=== PATIENT | male | born 1950 | race Caucasian/White ===

== ENCOUNTER 2017-07-19 13:51 | Emergency (ER) | payer OTHER, SELFPAY ==
[2017-07-19 13:52] VITALS: BP 177/94; PULSE 77; RESP 18; TEMP 36.6; O2SAT 97; BMI 29.6
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
--- NOTE | 2017-07-19 14:46 | NURSING ---
NO LW OR POA
[2017-07-19 14:47] LABS: Bacteria 0 SEEN /hpf (None Seen); Mucous, Urine 0 SEEN /hpf (<or=2+); Red Blood Cells-Urine 0 SEEN /hpf (0-5); White Blood Cells 0 SEEN /hpf (0-5)
[2017-07-19 14:52] LABS: Color, Urine Yellow (Yellow); Glucose, Dipstick Normal (Normal); Ketone-Dipstick Negative (Negative); Leukocyte Esterase-Dipstick Negative /ul (Negative); Nitrite-Dipstick Negative (Negative); Occult Blood-Urine Negative /ul (Negative); Protein-Dipstick Negative (Negative); Urine Bilirubin Dipstick Negative (Negative); Urine Clarity Sl. Cloudy (Clear); Urine Urobilinogen Normal (Normal)
[2017-07-19 15:00] LABS: Squamous Epithelial Cells - UA 0-5 SEEN /hpf (0-5)
--- NOTE | 2017-07-19 15:23 | CT_ITS ---
STUDY: CT ABDOMEN AND PELVIS WITHOUT CONTRAST REASON FOR EXAM: Male, 67 years old. Left lower quadrant abdominal pain RADIATION DOSAGE (If Supplied By Facility): CTDIvol = ( 14.24 ) mGy, DLP = ( 640.35 ) mGycm TECHNIQUE: Transaxial images were obtained from the dome of the diaphragm to the symphysis pubis without oral contrast, and without intravenous contrast. Sagittal and coronal images were reconstructed. Individualized dose optimization techniques were used for this CT. COMPARISON: 04/01/2017 FINDINGS: The visualized lung bases are unremarkable. The visualized portions of the heart are within normal limits. There is decreased attenuation of the liver consistent with steatosis. Normal gallbladder and extrahepatic biliary system. Normal spleen. Normal pancreas. Normal bilateral adrenal glands. Normal right kidney. Well-defined hypodensity within the lower pole of the left kidney, largest measuring 2.4 cm. Probable cysts. Normal visualized stomach. Normal small intestine. There are multiple colonic diverticula consistent with diverticulosis. The appendix is visualized and appears normal. Infrarenal abdominal aortic aneurysm is noted which is probably fusiform in nature measuring 3.7 cm AP by 3.6 cm wide. Extensive atherosclerotic calcifications of the abdominal aorta. Normal inferior vena cava. Normal retroperitoneum. Normal urinary bladder. There are prostatic calcifications. Normal abdominal wall. There are diffuse degenerative changes of the visualized lumbar spine. CT/Abdomen/Pelvis without Cont IMPRESSION: 1. No acute findings. 2. Infrarenal abdominal aortic aneurysm, stable from prior exam. 3. Stable left lower pole renal cysts. Electronically Signed: Brent Petersen DO at 16:12 EST Tel , Service support ,
--- NOTE | 2017-07-19 16:25 | NURSING ---
NO LW OR POA
== END 2017-07-19 17:11 | disposition home or self-care (01) ==
PROVIDERS: Emergency Provider Emergency Medicine; Family Provider Family Medicine; PCP Family Medicine
DX: R10.32 Left lower quadrant pain (principal); I71.4 Abdominal aortic aneurysm, without rupture; E78.00 Pure hypercholesterolemia, unspecified; K21.9 Gastro-esophageal reflux disease without esophagitis
CPT/HCPCS: 74176; 81001; 99282

== ENCOUNTER → 2017-11-05 16:09 | Outpatient (CLI) | payer OTHER, SELFPAY | PROVIDERS: Family Provider Family Medicine; PCP Family Medicine; Visit Provider Family Medicine | DX: N39.0 Urinary tract infection, site not specified (principal) | CPT/HCPCS: 87086 ==

== ENCOUNTER → 2018-04-06 09:31 | Outpatient (CLI) | payer MEDICARE, OTHER, SELFPAY ==
--- NOTE | 2018-04-06 09:34 | US_ITS ---
PROCEDURES: ULTRASOUND AORTA REASON FOR EXAM: Male, 68 years old. AAA TECHNIQUE: Ultrasound evaluation of the aorta was performed with real-time and static mcghee-scale imaging. COMPARISON: Ultrasound dated 04/06/2016. CT abdomen and pelvis dated 07/19/2017 FINDINGS: There is no elongation or tortuosity of the abdominal aorta. Aorta measures: Proximal 2 cm. Middle 2.4 cm. Distal 3.6 cm. Aorta measure transversely: Proximal 2.4 cm. Middle 2.3 cm. Distal 3.3 cm. Right iliac artery measures: 0.9 cm. Right iliac artery measure transversely: 1.2 cm. Left iliac artery measures: 0.9 cm. Left iliac artery measure transversely: 1.4 cm. There is a demonstrated saccular aneurysm.. Measuring 3.3 x 4.2 cm US/Aorta IMPRESSION: Saccular abdominal aortic aneurysm measuring 3.3 x 4.2 cm. Stable from [address] abdomen and pelvis dated 07/19/2017 Electronically Signed: Brent Petersen DO at 12:35 EDT Tel , Service support ,
== END ==
PROVIDERS: Family Provider Family Medicine; PCP Family Medicine; Referring Provider Family Medicine; Visit Provider Family Medicine
DX: I71.4 Abdominal aortic aneurysm, without rupture (principal)
CPT/HCPCS: 76775

== ENCOUNTER → 2019-03-29 08:54 | Outpatient (CLI) | payer MEDICARE, OTHER, SELFPAY ==
--- NOTE | 2019-03-29 08:56 | US_ITS ---
PROCEDURES: ULTRASOUND AORTA REASON FOR EXAM: Male, 69 years old. Patient has a history of abdominal aortic aneurysm. TECHNIQUE: Ultrasound evaluation of the aorta was performed with real-time and static mcghee-scale imaging. COMPARISON: Comparison is made with prior study April 06, 2018. FINDINGS: There is no elongation or tortuosity of the abdominal aorta. Aorta measures: Proximal obscured by bowel gas. Middle 1.9 cm. Distal 4.0 cm. Aorta measure transversely: Proximal obscured by bowel gas. Middle 1.9 cm. Distal 3.3 cm. Right iliac artery measures: 0.8 cm. Right iliac artery measure transversely: 1.1 cm. Left iliac artery measures: 0.8 cm. Left iliac artery measure transversely: 1.1 cm. There is a demonstrated saccular infrarenal abdominal aortic aneurysm.. This is essentially unchanged. US/Aorta IMPRESSION: Stable saccular infrarenal abdominal aortic aneurysm with a transverse dimension of 3.3 cm and 4.3 cm in length Electronically Signed: Rakan Puente, at 13:39 EDT , Service support ,
== END ==
PROVIDERS: Family Provider Family Medicine; PCP Family Medicine; Referring Provider Family Medicine; Visit Provider Family Medicine
DX: I71.4 Abdominal aortic aneurysm, without rupture (principal)
CPT/HCPCS: 76775

== ENCOUNTER → 2019-04-03 | Outpatient (CLI) | payer MEDICARE, OTHER, SELFPAY ==
[2019-04-03 14:18] LABS: Cholesterol 210 mg/dL (200); High Density Lipoprotein 46 mg/dL; Triglycerides 128 mg/dL; Very Low Density Lipoprotein 26 mg/dL (5-40)
== END | disposition home or self-care (01) ==
LOC: MFPLAB 11:44
PROVIDERS: Family Provider Family Medicine; PCP Family Medicine; Visit Provider Family Medicine
DX: Z00.00 Encounter for general adult medical examination without abnormal findings (principal); Z12.5 Encounter for screening for malignant neoplasm of prostate
CPT/HCPCS: 36415; 80061; 84153; G0103

== ENCOUNTER → 2020-01-02 11:53 | Outpatient (CLI) | payer MEDICARE, OTHER, SELFPAY ==
[2020-01-02 15:50] LABS: Absolute Neutrophil Count 2.7 X10^3/uL (2.0-7.7); Basophil# 0.05 X10^3/uL; Eosinophil# 0.11 X10^3/uL; Eosinophils% 2.3 % (0-5); Hematocrit 47.4 % (40-54); Hemoglobin 15.2 g/dL (13.0-16.5); Lymphocyte % 31.1 % (19-41); Mean Corp Hgb Conc 32.1 g/dL (32-36); Mean Corpuscular Hgb 29.3 pg (27.0-32.0); Mean Corpuscular Volume 91.3 fL (80-94); Mean Platelet Vol. 9.8 fl (6.2-12.0); Monocyte# 0.46 X10^3/uL; Monocyte% 9.5 % (0-10); NRBC Flagged by Analyzer 0 % (0-5); Neutrophil # 2.68 X10^3/uL (2.7-7.7); Neutrophil % 55.7 % (47-70); Platelet Count 262 K/mm3 (150-450); RBC Distribution Width CV 13.2 % (11.6-14.6); RBC Distribution Width SD 43.8 fl (35.1-43.9); Red Blood Count 5.19 M/mm3 (4.6-6.2); White Blood Count 4.8 K/mm3 (4.4-11.0)
[2020-01-02 15:51] LABS: Erythrocyte Sedimentation Rate 14 mm/hr (0-20)
[2020-01-02 16:27] LABS: Rheumatoid Factor < 10.0 IU/mL (<15)
[2020-01-04 15:20] LABS: ANTINUCLEAR ANTIBODIES DIRECT Negative (Negative)
== END ==
PROVIDERS: PCP Family Medicine; Referring Provider Family Medicine; Visit Provider Family Medicine
DX: M19.90 Unspecified osteoarthritis, unspecified site (principal)
CPT/HCPCS: 36415; 85025; 85652; 86038; 86431

== ENCOUNTER → 2020-04-10 09:53 | Outpatient (CLI) | payer MEDICARE, OTHER, SELFPAY ==
[2020-04-10 12:40] LABS: Absolute Lymphocyte Count 1.98 X10^3/uL (0.83-4.51); Absolute Neutrophil Count 3.1 X10^3/uL (2.0-7.7); Basophil# 0.05 X10^3/uL; Basophil% 0.9 % (0-1); Eosinophil# 0.19 X10^3/uL; Eosinophils% 3.3 % (0-5); Hematocrit 44.5 % (40-54); Hemoglobin 14.9 g/dL (13.0-16.5); Lymphocyte # 1.98 X10^3/ul (4.0); Lymphocyte % 33.9 % (19-41); Mean Corp Hgb Conc 33.5 g/dL (32-36); Mean Corpuscular Hgb 29.1 pg (27.0-32.0); Mean Corpuscular Volume 86.9 fL (80-94); Mean Platelet Vol. 9.7 fl (6.2-12.0); Monocyte% 8.6 % (0-10); NRBC Flagged by Analyzer 0 % (0-5); Neutrophil # 3.11 X10^3/uL (2.7-7.7); Neutrophil % 53.1 % (47-70); Platelet Count 349 K/mm3 (150-450); RBC Distribution Width CV 13.2 % (11.6-14.6); RBC Distribution Width SD 41.9 fl (35.1-43.9); Red Blood Count 5.12 M/mm3 (4.6-6.2); White Blood Count 5.8 K/mm3 (4.4-11.0)
[2020-04-10 13:10] LABS: Cholesterol 173 mg/dL (200); High Density Lipoprotein 45 mg/dL; PSA,Total - Annual Screen 2.68 ng/mL (0.00-4.00); Triglycerides 74 mg/dL; Very Low Density Lipoprotein 15 mg/dL (5-40)
== END ==
PROVIDERS: PCP Family Medicine; Referring Provider Family Medicine; Visit Provider Family Medicine
DX: Z00.00 Encounter for general adult medical examination without abnormal findings (principal); Z12.5 Encounter for screening for malignant neoplasm of prostate; E78.5 Hyperlipidemia, unspecified; D59.10 Autoimmune hemolytic anemia, unspecified
CPT/HCPCS: 36415; 80061; 84153; 85025; G0103

== ENCOUNTER → 2020-05-24 07:48 | Outpatient (CLI) | payer MEDICARE, OTHER, SELFPAY ==
--- NOTE | 2020-05-24 07:50 | AAVD_ITS ---
Reason For Study: AAA Aorta Measurements Aorta Doppler Measurements Proximal aorta measures2.44 x 2.34cm. in cross- Peak systolic flow velocities within the proximal sectional axis. aorta measure 81.7 cm/sec. Proximal aorta measures2.26cm. in longitudinal Peak systolic flow velocities within the mid aorta axis. measure 72.9 cm/sec. Mid aorta measures3.23 x 3.25cm. in cross- Peak systolic flow velocities within the distal sectional axis. aorta measure 93 cm/sec. Mid aorta measures3.47cm. in longitudinal axis. Distal aorta measures2.68 x 2.54cm. in cross- sectional axis. Distal aorta measures2.67cm. in longitudinal axis. Left Iliac Artery Left iliac artery measures 0.94 x 1.09 cm. in the cross-sectional axis. Left iliac artery measures 1.00 cm. in the longitudinal axis. Peak systolic velocity in the left iliac artery measures 228.4 cm/sec. Right Iliac Artery Right iliac artery measures 1.02 x 1.07 cm. in the cross-sectional axis. Right iliac artery measures 0.99 cm. in the longitudinal axis. Peak systolic velocity in the right iliac artery measures 251.7 cm/sec. Procedure Aorta IVC Iliac vasculature or bypass grafts [id number]. Exam performed in department. Interpretation Summary The intra-abdominal aorta is mildly aneurysmal, with a maximal diameter of 3.47 centimeters. The iliac arteries appear to be normal in size bilaterally. The intra-abdominal aorta and iliac arteries appear patent, demonstrating pulsatile arterial flow. Peak systolic velocities are elevated in the iliac arteries bilaterally, suggestive of hemodynamically significant stenosis. Clinical correlation is advised. Ordering Physician: Loren Arita Referring Physician: Loren Arita Performed By: Itzel Molina RVT and Student
== END ==
PROVIDERS: PCP Family Medicine; Referring Provider Family Medicine; Visit Provider Family Medicine
DX: I71.4 Abdominal aortic aneurysm, without rupture (principal)
CPT/HCPCS: 93978

== ENCOUNTER → 2021-02-17 06:54 | Outpatient (CLI) | payer MEDICARE, OTHER, SELFPAY ==
--- NOTE | 2021-02-17 07:03 | MRI_ITS ---
STUDY: MRI BRAIN WITH AND WITHOUT CONTRAST (ATTENTION INTERNAL AUDITORY CANALS - I.A.C.''s) REASON FOR EXAM: Male, 71 years old. ASYMMETRIC HEARING LOSS, right ear hearing loss TECHNIQUE: Standardized multiplanar fat and water weighted pulse sequences were obtained. 17ml IV Dotarem was administered for the contrast portion of the examination. COMPARISON: None. FINDINGS: Normal bilateral temporal bones. Normal bilateral internal auditory canals. There is no demonstrated intracanalicular or cisternal vestibular schwannoma (acoustic neuroma). There is no enhancement of the bilateral VIIth or VIIIth cranial nerves. Normal bilateral cochlea, vestibules and semicircular canals. There is mild cerebral atrophy with widening of the extra-axial spaces and ventricular dilatation. There are multiple white matter hyperintensities, distributed throughout the deep white matter tracts of the cerebral hemispheres, consistent with mild chronic white matter ischemic changes. Normal bilateral basal ganglia. Normal thalami. There is no enhancing intra-axial or extra-axial abnormality. There is no extra-axial fluid accumulation. Normal sella turcica, pituitary gland, infundibular stalk, optic chiasm and hypothalamus. Normal tectal plate and pineal gland. Normal midbrain, aiden and medulla. Normal cerebellum. MRI/Brain W/WO Contrast IMPRESSION: There is no demonstrated vestibular schwannoma (acoustic neuroma). Electronically Signed: Maciej Meza MD at 8:59 EDT Tel , Service support ,
[2021-02-17 07:26] LABS: CREATININE FINGERSTICK 0.9 mg/dL (0.70-1.30); EGFR FINGERSTICK > 60.0000 mL/min (>60)
== END ==
PROVIDERS: PCP Family Medicine; Referring Provider Otolaryngology; Visit Provider Otolaryngology
DX: H90.3 Sensorineural hearing loss, bilateral (principal)
CPT/HCPCS: 70553; A9575

== ENCOUNTER → 2021-05-02 14:44 | Outpatient (CLI) | payer MEDICARE, OTHER, SELFPAY | PROVIDERS: PCP Family Medicine; Visit Provider Family Medicine | DX: R05.9 Cough, unspecified (principal) | CPT/HCPCS: 87635; U0005; U0003 ==

== ENCOUNTER → 2021-05-07 10:20 | Outpatient (CLI) | payer MEDICARE, OTHER, SELFPAY ==
[2021-05-07 12:19] LABS: Absolute Lymphocyte Count 2.29 X10^3/uL (0.83-4.51); Absolute Neutrophil Count 6.3 X10^3/uL (2.0-7.7); Basophil# 0.05 X10^3/uL; Basophil% 0.5 % (0-1); Eosinophil# 0.24 X10^3/uL; Eosinophils% 2.5 % (0-5); Hematocrit 48.2 % (40-54); Hemoglobin 16.3 g/dL (13.0-16.5); Lymphocyte # 2.29 X10^3/ul (0.83-4.51); Lymphocyte % 24.2 % (19-41); Mean Corp Hgb Conc 33.8 g/dL (32-36); Mean Corpuscular Hgb 28.7 pg (27.0-32.0); Mean Corpuscular Volume 84.9 fL (80-94); Monocyte# 0.56 X10^3/uL; Monocyte% 5.9 % (0-10); NRBC Flagged by Analyzer 0 % (0-5); Neutrophil # 6.32 X10^3/uL (2.7-7.7); Neutrophil % 66.7 % (47-70); Platelet Count 291 K/mm3 (150-450); RBC Distribution Width CV 13.1 % (11.6-14.6); RBC Distribution Width SD 41.1 fl (35.1-43.9); Red Blood Count 5.68 M/mm3 (4.6-6.2); White Blood Count 9.5 K/mm3 (4.4-11.0)
[2021-05-07 12:39] LABS: AST(SGOT) 22 U/L (15-37); Alanine Aminotransfer ALT/SGPT 35 U/L (16-61); Cholesterol 148 mg/dL (200); High Density Lipoprotein 35 mg/dL; PSA,Total - Annual Screen 2.39 ng/mL (0.00-4.00); Triglycerides 132 mg/dL; Very Low Density Lipoprotein 26 mg/dL (5-40)
== END ==
PROVIDERS: PCP Family Medicine; Referring Provider Family Medicine; Visit Provider Family Medicine
DX: E78.5 Hyperlipidemia, unspecified (principal); Z12.5 Encounter for screening for malignant neoplasm of prostate; D59.10 Autoimmune hemolytic anemia, unspecified
CPT/HCPCS: 36415; 80061; 84153; 84450; 84460; 85025; G0103

== ENCOUNTER → 2021-05-13 09:33 | Outpatient (CLI) | payer MEDICARE, OTHER, SELFPAY ==
--- NOTE | 2021-05-13 09:35 | US_ITS ---
PROCEDURES: ULTRASOUND AORTA REASON FOR EXAM: Male, 71 years old. follow up AAA TECHNIQUE: Ultrasound evaluation of the aorta was performed with real-time and static mcghee-scale imaging. COMPARISON: 05.24.20. FINDINGS: There is atherosclerotic plaque formation of the abdominal aorta. There is tortuous elongation of the abdominal aorta. Aorta measures: Proximal 1.5 cm. Middle 2.1 cm. Distal 3.7 cm. Aorta measure transversely: Proximal 1.8 cm. Middle 2.4 cm. Distal 3.8 cm. Right iliac artery measures: 1.1 cm. Right iliac artery measure transversely: 1.4 cm. Left iliac artery measures: 0.7 cm. Left iliac artery measure transversely: 1.1 cm. There is a demonstrated aneurysm.. This measures 38 mm x 15 mm. It is fusiform in appearance. US/Aorta IMPRESSION: 38 mm infrarenal abdominal aortic aneurysm. This has enlarged since the prior US. Electronically Signed: Meng Nguyễn MD at 15:50 EST , Service support ,
== END ==
PROVIDERS: PCP Family Medicine; Referring Provider Family Medicine; Visit Provider Family Medicine
DX: I71.4 Abdominal aortic aneurysm, without rupture (principal)
CPT/HCPCS: 76775

== ENCOUNTER → 2021-05-28 06:17 | Outpatient (CLI) | payer MEDICARE, OTHER, SELFPAY | PROVIDERS: PCP Family Medicine; Referring Provider Family Medicine; Visit Provider Family Medicine | DX: U07.1 COVID-19 (principal) | CPT/HCPCS: 87635; U0005; U0003 ==

== ENCOUNTER → 2022-02-11 | Outpatient (CLI) | payer MEDICARE, OTHER, SELFPAY ==
--- NOTE | 2022-02-11 14:31 | RAD_ITS ---
STUDY: X-RAY CHEST REASON FOR EXAM: Male, 72 years old. COPD TECHNIQUE: PA and lateral views of the chest. COMPARISON: April 01, 2017. FINDINGS: No focal infiltrates or effusions. No pneumothorax. Lungs are hyperinflated. Normal size heart. Normal mediastinum and terrie. Normal visualized pulmonary arteries. Normal visualized aortic arch and descending thoracic aorta. Normal visualized thoracic spine. Normal visualized ribs, clavicles, and shoulders. There is no demonstrated abnormality of the visualized soft tissue structures of the upper abdomen. RAD/Chest PA and Lateral IMPRESSION: No acute cardiopulmonary disease. COPD. Electronically Signed: Guerrero Pool MD at 6:48 EDT Reading Location ID and State: [id number] / , Service support ,
[2022-02-11 18:10] LABS: Erythrocyte Sedimentation Rate 31 mm/hr (0-20)
[2022-02-11 18:18] LABS: Absolute Neutrophil Count 5.2 X10^3/uL (2.0-7.7); Basophil# 0.06 X10^3/uL; Basophil% 0.7 % (0-1); Eosinophil# 0.15 X10^3/uL; Eosinophils% 1.8 % (0-5); Hematocrit 48.7 % (40-54); Hemoglobin 16.7 g/dL (13.0-16.5); Lymphocyte % 27.5 % (19-41); Mean Corp Hgb Conc 34.3 g/dL (32-36); Mean Corpuscular Hgb 29.7 pg (27.0-32.0); Mean Corpuscular Volume 86.7 fL (80-94); Mean Platelet Vol. 9.9 fl (6.2-12.0); Monocyte# 0.61 X10^3/uL; Monocyte% 7.3 % (0-10); NRBC Flagged by Analyzer 0 % (0-5); Neutrophil # 5.23 X10^3/uL (2.7-7.7); Neutrophil % 62.5 % (47-70); Platelet Count 239 K/mm3 (150-450); RBC Distribution Width CV 13.3 % (11.6-14.6); RBC Distribution Width SD 42.2 fl (35.1-43.9); Red Blood Count 5.62 M/mm3 (4.6-6.2); White Blood Count 8.4 K/mm3 (4.4-11.0)
[2022-02-11 19:01] LABS: ALB/GLOB Ratio 0.9 RATIO (0.9-2.4); AST(SGOT) 27 U/L (15-37); Alanine Aminotransfer ALT/SGPT 42 U/L (16-61); Albumin, Serum 3.7 g/dL (3.2-5.0); Alkaline Phosphatase 72 U/L (45-117); Anion Gap 9 (5-15); BUN 11 mg/dL (7-18); BUN/Creat Ratio 11.5 RATIO (10-20); Calcium,Total 9.1 mg/dL (8.5-10.1); Chloride 104 mmol/L (98-107); Creatinine, Serum 0.95 mg/dL (0.70-1.30); EST Glomerular Filtration Rate 83 mL/min (>60); Est Glom Filt Rate - Afr Amer 100 mL/min (>60); Globulin 4.2 g/dL (2.2-4.2); Glucose 73 mg/dL (74-106); Potassium 3.8 mmol/L (3.5-5.1); Protein, Total 7.9 g/dL (6.4-8.2); Sodium Level 139 mmol/L (136-145)
== END | disposition home or self-care (01) ==
LOC: MTLAB 14:10
PROVIDERS: PCP Family Medicine; Referring Provider Family Medicine; Visit Provider Family Medicine
DX: J44.1 Chronic obstructive pulmonary disease with (acute) exacerbation (principal); D59.10 Autoimmune hemolytic anemia, unspecified
CPT/HCPCS: 36415; 71046; 80053; 84443; 85025; 85652

== ENCOUNTER → 2022-05-12 | Outpatient (CLI) | payer MEDICARE, OTHER, SELFPAY ==
[2022-05-12 15:19] LABS: AST(SGOT) 24 U/L (15-37); Alanine Aminotransfer ALT/SGPT 41 U/L (16-61); Cholesterol 156 mg/dL (200); High Density Lipoprotein 42 mg/dL; PSA,Total - Annual Screen 2.34 ng/mL (0.00-4.00); Triglycerides 134 mg/dL; Very Low Density Lipoprotein 27 mg/dL (5-40)
== END | disposition home or self-care (01) ==
LOC: MFPLAB 11:55
PROVIDERS: PCP Family Medicine; Referring Provider Family Medicine; Visit Provider Family Medicine
DX: Z00.00 Encounter for general adult medical examination without abnormal findings (principal); E78.5 Hyperlipidemia, unspecified; Z12.5 Encounter for screening for malignant neoplasm of prostate
CPT/HCPCS: 36415; 80061; 84153; 84450; 84460; G0103

== ENCOUNTER → 2022-06-11 | Outpatient (CLI) | payer MEDICARE, OTHER, SELFPAY ==
--- NOTE | 2022-06-11 08:52 | AAAS_ITS ---
Reason For Study: AAA Aorta Measurements Aorta Doppler Measurements Proximal aorta measures2.27 x 2.34cm. in cross- Peak systolic flow velocities within the proximal sectional axis. aorta measure 52.4 cm/sec. Proximal aorta measures2.22cm. in longitudinal Peak systolic flow velocities within the mid aorta axis. measure 57.8 cm/sec. Mid aorta measures3.62 x 3.48cm. in cross- Peak systolic flow velocities within the distal sectional axis. aorta measure 52.4 cm/sec. Mid aorta measures3.68cm. in longitudinal axis. Distal aorta measures2.23 x 2.52cm. in cross- sectional axis. Distal aorta measures1.98cm. in longitudinal axis. Left Iliac Artery Left iliac artery measures .84 x .99 cm. in the cross-sectional axis. Left iliac artery measures .8 cm. in the longitudinal axis. Peak systolic velocity in the left iliac artery measures 332.4 cm/sec. Right Iliac Artery Right iliac artery measures .9 x 1.06 cm. in the cross-sectional axis. Right iliac artery measures .89 cm. in the longitudinal axis. Peak systolic velocity in the right iliac artery measures 282.1 cm/sec. Procedure Aorta IVC Iliac vasculature or bypass grafts [id number]. The exam was diagnostic. Exam performed in department. VL/AAA Screening Interpretation Summary Saccular abdominal aortic aneurysm in the mid aorta measuring 3.62 x 3.48 cm in diameter Normal aortic flow velocity Left common iliac artery normal at 0.84 x 0.99 cm Right common iliac artery normal at 0.9 x 1.06 cm Ordering Physician: Junito Cedeno Performed By: Adalberto Titus RVT
[2023-05-21 12:30] LABS: Absolute Lymphocyte Count 1.86 X10^3/uL (0.83-4.51); Absolute Neutrophil Count 3.7 X10^3/uL (2.0-7.7); Basophil# 0.04 X10^3/uL; Basophil% 0.6 % (0-1); Eosinophil# 0.16 X10^3/uL; Eosinophils% 2.5 % (0-5); Hematocrit 47.1 % (40-54); Hemoglobin 15.4 g/dL (13.0-16.5); Lymphocyte # 1.86 X10^3/ul (0.83-4.51); Lymphocyte % 29.6 % (19-41); Mean Corp Hgb Conc 32.7 g/dL (32-36); Mean Corpuscular Hgb 28.5 pg (27.0-32.0); Mean Corpuscular Volume 87.1 fL (80-94); Mean Platelet Vol. 9.4 fl (6.2-12.0); Monocyte# 0.56 X10^3/uL; Monocyte% 8.9 % (0-10); NRBC Flagged by Analyzer 0 % (0-5); Neutrophil # 3.65 X10^3/uL (2.7-7.7); Neutrophil % 58.1 % (47-70); Platelet Count 282 K/mm3 (150-450); RBC Distribution Width CV 13.5 % (11.6-14.6); RBC Distribution Width SD 43.3 fl (35.1-43.9); Red Blood Count 5.41 M/mm3 (4.6-6.2); White Blood Count 6.3 K/mm3 (4.4-11.0)
[2023-05-21 12:40] LABS: AST(SGOT) 22 U/L (15-37); Alanine Aminotransfer ALT/SGPT 27 U/L (16-61); Cholesterol 125 mg/dL (200); High Density Lipoprotein 37 mg/dL; PSA,Total - Annual Screen 2.29 ng/mL (0.00-4.00); Triglycerides 103 mg/dL; Very Low Density Lipoprotein 21 mg/dL (5-40)
== END | disposition home or self-care (01) ==
LOC: CVS 08:49
PROVIDERS: PCP Family Medicine; Referring Provider Surgery; Visit Provider Surgery
DX: I71.40 Abdominal aortic aneurysm, without rupture, unspecified (principal)
CPT/HCPCS: 36415; 76706; 80061; 84153; 84450; 84460; 85025; G0103

== ENCOUNTER → 2023-05-21 | Outpatient (CLI) | payer MEDICARE, OTHER, SELFPAY | END | disposition home or self-care (01) | PROVIDERS: PCP Family Medicine; Referring Provider Family Medicine; Visit Provider Family Medicine | DX: Z00.00 Encounter for general adult medical examination without abnormal findings (principal) ==

== ENCOUNTER → 2023-06-18 | Outpatient (CLI) | payer MEDICARE, OTHER, SELFPAY ==
--- NOTE | 2023-06-18 08:37 | AAVD_ITS ---
Reason For Study: AAA w/o rupture Aorta Measurements Aorta Doppler Measurements Proximal aorta measures2.10 x 2.10cm. in cross- Peak systolic flow velocities within the proximal sectional axis. aorta measure 121.2 cm/sec. Proximal aorta measures2.09cm. in longitudinal Peak systolic flow velocities within the mid aorta axis. measure 83.2 cm/sec. Mid aorta measures3.91 x 3.99cm. in cross- Peak systolic flow velocities within the distal sectional axis. aorta measure 99.5 cm/sec. Mid aorta measures3.95cm. in longitudinal axis. Mural thrombus noted at mid aorta. Distal aorta measures1.64 x 1.81cm. in cross- sectional axis. Distal aorta measures1.53cm. in longitudinal axis. Left Iliac Artery Left iliac artery measures 0.80 x 0.77 cm. in the cross-sectional axis. Left iliac artery measures 0.72 cm. in the longitudinal axis. Peak systolic velocity in the left iliac artery measures 270.4 cm/sec. Right Iliac Artery Right iliac artery measures 1.05 x 1.10 cm. in the cross-sectional axis. Right iliac artery measures 1.00 cm. in the longitudinal axis. Peak systolic velocity in the right iliac artery measures 177.4 cm/sec. Procedure Aorta IVC Iliac vasculature or bypass grafts [id number]. Exam performed in department. VL/Abd Aortic/IVC Duplex scan Interpretation Summary Mid abdominal aortic aneurysm measuring 3.91 x 3.99 cm in diameter. Turbulent f low is noted Left common iliac artery 0.8 x 0.77 cm diameter which is normal but with increa sed velocity flow at 270 cm/s consistent with atherosclerotic occlusive disease Right common iliac artery measures normal at 1.05 x 1.1 cm diameter again howev er with slightly increased velocity at 177.4 cm/s consistent with occlusive disease Previously on June 11, 2022 the abdominal aortic aneurysm measured 3.62 x 3.4 8 cm in diameter Ordering Physician: Junito Cedeno Referring Physician: Loren Arita M.D. Performed By: Itzel Molina RVT
== END | disposition home or self-care (01) ==
LOC: CVS 08:37
PROVIDERS: PCP Family Medicine; Referring Provider Surgery; Visit Provider Surgery
DX: I71.41 Pararenal abdominal aortic aneurysm, without rupture (principal)
CPT/HCPCS: 93978

== ENCOUNTER → 2023-07-12 | Outpatient (CLI) | payer MEDICARE, OTHER, SELFPAY ==
--- NOTE | 2023-07-12 08:47 | CDU_ITS ---
Reason For Study: Carotid bruit Rt. Velocities/BP Lt. Velocities/BP Prox CCA 55.1/12.6 cm/sec. Prox CCA 54.2/13.5 cm/sec. Mid CCA 45.6/11.6 cm/sec. Mid CCA 56.4/12.4 cm/sec. Dist CCA 47.5/11.6 cm/sec. Dist CCA 57.5/12.4 cm/sec. Prox ICA 143.3/20.4 cm/sec. Prox ICA 61.8/15.1 cm/sec. Mid ICA 117.4/20.6 cm/sec. Mid ICA 107.2/31.1 cm/sec. Dist ICA 77.3/18.8 cm/sec. Dist ICA 83.9/17.6 cm/sec. Rt. ICA/CCA = 3.02. Lt. ICA/CCA = 1.90. Prox ECA 104.7/9.7 cm/sec. Prox ECA 155.8/17 cm/sec. Rt. Vert. 23/5.2 cm/sec. Lt. Vert. 43.3/12.6 cm/sec. Right Extracranial There is homogeneous, smooth atherosclerotic plaque noted in the right common carotid artery. There is intimal thickening but no significant atherosclerotic plaque noted in the right internal carotid artery. There is heterogeneous, irregular atherosclerotic plaque noted in the right external carotid artery. Antegrade flow is noted in the right vertebral artery. Left Extracranial There is homogeneous, smooth atherosclerotic plaque noted in the left common carotid artery. There is heterogeneous, irregular atherosclerotic plaque noted in the left internal carotid artery. There is intimal thickening but no significant atherosclerotic plaque noted in the left external carotid artery. Antegrade flow is noted in the left vertebral artery. Procedure Carotid Duplex [id number]. This is a Carotid Duplex examination using B-mode, color flow and specral Doppler. Exam performed in department. VL/Carotid Duplex Ultrasound Interpretation Summary Irregular calcific plaque with shadowing at the proximal right internal carotid artery with 50 to 69% stenosis Less than 50% stenosis right external carotid artery Irregular calcific plaque with shadowing at the proximal left internal carotid artery with less than 50% stenosis Less than 50% stenosis left external carotid artery Patent and antegrade vertebral arteries bilaterally Ordering Physician: Junito Cedeno Referring Physician: Loren Arita M.D. Performed By: Itzel Molina RVT
== END | disposition home or self-care (01) ==
LOC: CVS 08:43 → AC 09:05
PROVIDERS: PCP Family Medicine; Referring Provider Surgery; Visit Provider Surgery
DX: R09.89 Other specified symptoms and signs involving the circulatory and respiratory systems (principal)
CPT/HCPCS: 93880

== ENCOUNTER 2023-10-15 11:44 | Emergency (ER) | payer MEDICARE, OTHER, SELFPAY ==
[2023-10-15 11:45] VITALS: BP 146/75; PULSE 57; RESP 16; TEMP 36.3; O2SAT 99
--- NOTE | 2023-10-15 13:25 | EDS_ITS ---
HPI <DENISA Molina - Last Filed: 10/15/23 14:22> History of Present Illness Chief Complaint: Laceration Narrative Narrative: Patient presenting today with a laceration to his L thumb that he got this afternoon. He reports that he was cutting plastic with a razor blade, he accidentally slipped and cut through the glove that he was wearing. He reports that his tetanus is up-to-date. PFSH <DENISA Molina - Last Filed: 10/15/23 14:22> [facility] Medical History AAA (abdominal aortic aneurysm) Home Medications aspirin 81 mg chewable tablet 81 mg PO DAILY@0800 04/01/17 [History Last Taken 04/01/17] omeprazole 40 mg capsule,delayed release 40 mg PO DAILY ANTI ACID 04/01/17 [History Last Taken 04/01/17] calcium carbonate (Calcium 500) 500 mg PO DAILY 06/11/21 [History Last Taken Unknown] cholecalciferol (vitamin D3) 50 mcg (2,000 unit) capsule 50 mcg PO DAILY 06/11/21 [History Last Taken Unknown] rosuvastatin 20 mg tablet 20 mg PO DAILY 06/11/21 [History Last Taken Unknown] ubidecarenone-omega 3-vit E 25 mg-150 (90-60) mg-200 unit capsule (Co W-62-Wrygiqe E-Fish Oil) 1 cap PO DAILY 06/11/21 [History Last Taken Unknown] Allergy/AdvReac Type Severity Reaction Status Date / Time azithromycin Allergy Nausea Verified 07/02/23 13:57 [From Zithromax Z-Himanshu] Family History Sister Cancer Father Diabetes Surgical History Cochlear implant status History of colonoscopy History of vasectomy Social History Smoking Status: Current some day smoker tobacco type: cigarettes alcohol intake: never substance use type: does not use ROS <DENISA Molina - Last Filed: 10/15/23 14:22> ROS ED Constitutional Constitutional ED: Denies chills or fever(s) Cardiovascular Cardiovascular: Denies chest pain Respiratory/Chest Respiratory/Chest: Denies cough or dyspnea Gastrointestinal Gastrointestinal: Denies abdominal pain, nausea or vomiting Musculoskeletal Musculoskeletal: Denies arthralgias or myalgias Integumentary Reports laceration Neurologic Neurologic: Denies paresthesias or weakness EXAM <DENISA Molina - Last Filed: 10/15/23 14:22> Physical Exam Const Vital Signs: 10/15/23 11:45 10/15/23 11:45 Temperature 97.4 F L Temperature Source Temporal Pulse Rate 57 L Respiratory Rate 16 Blood Pressure 146/75 H Blood Pressure Mean 98 Pulse Ox 99 Oxygen Delivery Method Room Air Positive well nourished, well developed and no apparent distress General Appearance ED: well developed HEENT Reports normocephalic and head/scalp atraumatic Mouth ED: Yes moist mucous membranes normal Eyes PERRL and EOMs intact bilaterally Neck full ROM and supple Chest Wall inspection of chest normal Resp normal respiratory effort and clear to auscultation bilaterally Cardio regular rate and regular rhythm GI soft to palpation, non-tender, non-distended and no masses Back/Spine normal ROM and normal to inspection Extremity full ROM Extremity Narrative: 1.5 cm full-thickness laceration on the dorsal aspect of left thumb, left radial pulse 2+, good capillary refill, sensation intact. Full flexion and extension at the MCP and IP joint. Neuro oriented x3, CN's II-XII intact bilaterally, moves all extremities, no focal motor deficits and no sensory deficits noted Sensorium / Orientation: awake and alert Psych mental status grossly normal and thought process normal [facility] <DENISA Molina - Last Filed: 10/15/23 14:22> [facility] Narrative Medical decision making narrative: Patient presenting today with a laceration to his left thumb. This will require repair with sutures. Wound was copiously irrigated with saline, it was also cleaned with chlorhexidine, 3 sutures were placed, patient tolerated procedure well. Wound was then bandaged with bacitracin ointment. He is to have stitches out in 7 to 10 days. Wound care instructions discussed, return instructions given. Patient will be discharged home in stable condition. <Dr. Thong Doan DO - Last Filed: 10/15/23 16:01> [facility] Treatment and Re-Evaluation Narrative: I have personally performed a face to face assessment of the patient and have reviewed the PINKY Note. I performed a substantive portion of the visit including all aspects of the following. My gallrado findings include: History: Patient presents with left open wound left thumb that occurred today. Patient was using a utility knife when it slipped and he accidentally cut his left thumb. Patient is right-hand dominant. Patient thinks his last tetanus was approximately 2 years ago. Patient denies any paresthesias or weakness. Patient denies any other injuries. Patient states the bleeding stopped after several minutes of pressure. Exam: Vital signs are stable. Patient is afebrile. Patient is in no acute distress. Skin is warm and dry. There is a 1.5 cm linear laceration over the dorsal aspect of the proximal phalanx of the left thumb. There is minimal bleeding noted. There are no foreign bodies noted there is moderate gapping of the wound margins. Sensation was intact to light touch in all digits. Capillary refill was less than 2 seconds in all digits. Strength is 5/5 in flexion extension of the IP and MP joint of the left thumb. Medical Decision Making: The wound was cleaned and irrigated with copious amounts normal saline. The wound was anesthetized with 1% lidocaine. The wound was closed by the PINKY under my supervision. Patient tolerated procedure well. Bacitracin dressing was applied. Patient was instructed to keep the wound clean and dry. Patient was instructed to follow-up with his primary care physician in 7 days for wound recheck and suture removal. Patient understood and was agreeable with the plan. All questions were answered. Procedures <DENISA Molina - Last Filed: 10/15/23 14:22> Lacerations Laceration: Length: 1.5 cm Depth: Sub Q Shape: Linear Prep: Chlorhexadine Laceration repair: Irrigated, Lidocaine, Skin sutures and Wound explored Suture Information: Ethilon, Simple and 5-0 Discharge Plan Triage Chief Complaint: Laceration ED Midlevel Provider: Karo Ledezma ED Provider: Thong Doan Dx/Rx/DC Orders Clinical Impression: Laceration of finger Instructions: ED Laceration Extremity Prescriptions: No Action rosuvastatin 20 mg tablet 20 mg PO DAILY calcium carbonate [Calcium 500] 500 mg calcium (1,250 mg) tablet,chewable 500 mg PO DAILY cholecalciferol (vitamin D3) 50 mcg (2,000 unit) capsule 50 mcg PO DAILY Co W-45-Mtrmxki E-Fish Oil 25-150-200 mg-mg-unit capsule 1 cap PO DAILY omeprazole 40 MG capsule,delayed release(DR/EC) 40 mg PO DAILY Patient Comments: aspirin 81 MG tablet,chewable 81 mg PO DAILY@0800 Primary Care Provider: Loren Arita Referrals: Loren Arita MD [Primary Care Provider] - 7 Days for suture removal Activity Restrictions/Additional Instructions: Follow-up with your PCP or return for any signs of infection. Disposition Disposition: Home, Self Care
== END 2023-10-15 14:02 | disposition home or self-care (01) ==
LOC: ED 13:50
PROVIDERS: Emergency Provider Emergency Medicine; PCP Family Medicine; Visit Provider Emergency Medicine
DX: S61.012A Laceration without foreign body of left thumb without damage to nail, initial encounter (principal); W26.8XXA Contact with other sharp object(s), not elsewhere classified, initial encounter; Z98.52 Vasectomy status; F17.210 Nicotine dependence, cigarettes, uncomplicated
CPT/HCPCS: 12001; 99282

== ENCOUNTER → 2023-11-12 | Outpatient (CLI) | payer MEDICARE, OTHER, SELFPAY ==
[2023-11-12 17:33] LABS: Absolute Lymphocyte Count 2.25 X10^3/uL (0.83-4.51); Absolute Neutrophil Count 4.5 X10^3/uL (2.0-7.7); Basophil# 0.09 X10^3/uL; Basophil% 1.2 % (0-1); Eosinophil# 0.17 X10^3/uL; Eosinophils% 2.2 % (0-5); Hematocrit 46.1 % (40-54); Hemoglobin 15.3 g/dL (13.0-16.5); Lymphocyte # 2.25 X10^3/ul (0.83-4.51); Lymphocyte % 29.5 % (19-41); Mean Corp Hgb Conc 33.2 g/dL (32-36); Mean Corpuscular Hgb 28.8 pg (27.0-32.0); Mean Corpuscular Volume 86.8 fL (80-94); Mean Platelet Vol. 9.9 fl (6.2-12.0); Monocyte# 0.61 X10^3/uL; NRBC Flagged by Analyzer 0 % (0-5); Platelet Count 212 K/mm3 (150-450); RBC Distribution Width CV 13.4 % (11.6-14.6); Red Blood Count 5.31 M/mm3 (4.6-6.2); White Blood Count 7.6 K/mm3 (4.4-11.0)
== END | disposition home or self-care (01) ==
LOC: MFPLAB 14:51
PROVIDERS: PCP Family Medicine; Visit Provider Family Medicine
DX: D59.10 Autoimmune hemolytic anemia, unspecified (principal)
CPT/HCPCS: 36415; 85025

== ENCOUNTER → 2024-06-02 | Outpatient (CLI) | payer MEDICARE, OTHER, SELFPAY ==
[2024-06-02 15:39] LABS: AST(SGOT) 29 U/L (15-37); Alanine Aminotransfer ALT/SGPT 37 U/L (16-61); Cholesterol 157 mg/dL (200); High Density Lipoprotein 45 mg/dL; PSA,Total - Annual Screen 2.05 ng/mL (0.00-4.00); Triglycerides 142 mg/dL; Very Low Density Lipoprotein 28 mg/dL (5-40)
== END | disposition home or self-care (01) ==
LOC: MTLAB 11:19
PROVIDERS: PCP Family Medicine; Referring Provider Family Medicine; Visit Provider Family Medicine
DX: Z12.5 Encounter for screening for malignant neoplasm of prostate (principal); E78.5 Hyperlipidemia, unspecified
CPT/HCPCS: 36415; 80061; 84153; 84443; 84450; 84460; G0103

== ENCOUNTER → 2024-06-29 | Outpatient (CLI) | payer MEDICARE, OTHER, SELFPAY ==
--- NOTE | 2024-06-29 07:29 | AAVD_ITS ---
Reason For Study: AAA Aorta Measurements Aorta Doppler Measurements Proximal aorta measures2.22x2.20cm. in cross- Peak systolic flow velocities within the proximal sectional axis. aorta measure 93.0 cm/sec. Proximal aorta measures2.31cm. in longitudinal Peak systolic flow velocities within the mid aorta axis. measure 50.4 cm/sec. Mid aorta measures4.10x4.10cm. in cross-sectional Peak systolic flow velocities within the distal axis. aorta measure 97.7 cm/sec. Mid aorta measures4.08cm. in longitudinal axis. Distal aorta measures1.44x1.45cm. in cross- sectional axis. Distal aorta measures1.37cm. in longitudinal axis. Left Iliac Artery Left iliac artery measures 0.87 cm. in the longitudinal axis. Left iliac artery measures 0.83x0.93 cm. in the cross-sectional axis. Peak systolic velocity in the left iliac artery measures 301.8 cm/sec. Right Iliac Artery Right iliac artery measures 1.15 cm. in the longitudinal axis. Right iliac artery measures 1.22x1.26 cm. in the cross-sectional axis. Peak systolic velocity in the right iliac artery measures 313.3 cm/sec. Procedure Aorta IVC Iliac vasculature or bypass grafts 33476. Exam performed in department. 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 Right iliac artery patent with >50% stenosis and ectasia to 1.26 cm. Left iliac artery patent with >50% stenosis, normal caliber. Ordering Physician: Freida English Referring Physician: Loren Arita M.D. Performed By: Itzel Molina RVT and Student
== END | disposition home or self-care (01) ==
LOC: CVS 07:26
PROVIDERS: PCP Family Medicine; Referring Provider Physician Assistant; Visit Provider Physician Assistant
DX: I71.43 Infrarenal abdominal aortic aneurysm, without rupture (principal)
CPT/HCPCS: 93978

== ENCOUNTER → 2024-07-10 | Outpatient (CLI) | payer MEDICARE, OTHER, SELFPAY ==
--- NOTE | 2024-07-10 07:44 | CDU_ITS ---
Reason For Study: Bilateral carotid disease Rt. Velocities/BP Lt. Velocities/BP Prox CCA 53.2/11.6 cm/sec. Prox CCA 52.6/12.5 cm/sec. Mid CCA 48.5/12.6 cm/sec. Mid CCA 50.9/10.7 cm/sec. Dist CCA 52.2/13.5 cm/sec. Dist CCA 62.2/14.2 cm/sec. Prox ICA 141.2/26.1 cm/sec. Prox ICA 55.6/15.1 cm/sec. Mid ICA 144.8/22.5 cm/sec. Mid ICA 158.7/40.2 cm/sec. Dist ICA 90.6/20.7 cm/sec. Dist ICA 71.4/18.2 cm/sec. Rt. ICA/CCA = 2.99. Lt. ICA/CCA = 3.12. Prox ECA 135.7/9.7 cm/sec. Prox ECA 92.7/9.1 cm/sec. Rt. Vert. 10.7 cm/sec. Lt. Vert. 52.2/15.4 cm/sec. Right Extracranial There is homogeneous, smooth atherosclerotic plaque noted in the right common carotid artery. There is heterogeneous, irregular atherosclerotic plaque noted in the right internal carotid artery. There is heterogeneous, irregular atherosclerotic plaque noted in the right external carotid artery. Antegrade flow is noted in the right vertebral artery. Left Extracranial There is homogeneous, smooth atherosclerotic plaque noted in the left common carotid artery. There is heterogeneous, irregular atherosclerotic plaque noted in the left internal carotid artery. There is heterogeneous, irregular atherosclerotic plaque noted in the left external carotid artery. Antegrade flow is noted in the left vertebral artery. Procedure Carotid Duplex 60452. This is a Carotid Duplex examination using B-mode, color flow and specral Doppler. Exam performed in department. VL/Carotid Duplex Ultrasound Interpretation Summary Moderate (50-69%) stenosis right extracranial internal carotid. Moderate (50-69%) stenosis left extracranial internal carotid. Patent and antegrade vertebrals bilaterally. Ordering Physician: Freida English Referring Physician: Loren Arita M.D. Performed By: Itzel Molina RVT
== END | disposition home or self-care (01) ==
PROVIDERS: PCP Family Medicine; Referring Provider Physician Assistant; Visit Provider Physician Assistant
DX: I65.23 Occlusion and stenosis of bilateral carotid arteries (principal)
CPT/HCPCS: 93880

== ENCOUNTER 2025-06-04 10:01 | Outpatient (CLI) | payer MEDICARE, OTHER, SELFPAY ==
[2025-06-04 12:10] LABS: Hematocrit 44.7 % (40-54); Hemoglobin 14.7 g/dL (13.0-16.5); Immature Granulocytes Count 0.020 X10^3/uL (0.0-0.0); Mean Corp Hgb Conc 32.9 g/dL (32-36); Mean Corpuscular Volume 85.5 fL (80-94); Mean Platelet Vol. 9.6 fl (6.2-12.0); NRBC Flagged by Analyzer 0 % (0-5); Platelet Count 281 K/mm3 (150-450); RBC Distribution Width CV 13.1 % (11.6-14.6); RBC Distribution Width SD 41.0 fl (35.1-43.9); Red Blood Count 5.23 M/mm3 (4.6-6.2); White Blood Count 6.9 K/mm3 (4.4-11.0)
[2025-06-04 13:25] LABS: AST(SGOT) 29 U/L (<=37); Alanine Aminotransfer ALT/SGPT 27 U/L (<=46); Albumin, Serum 3.9 g/dL (3.4-4.8); Alkaline Phosphatase 59 U/L (40-129); Anion Gap 13 (7-18); BUN 10 mg/dL (4-19); BUN/Creat Ratio 10.5 RATIO (10-20); Calcium,Total 9.3 mg/dL (7.6-11.0); Carbon Dioxide 25.0 mmol/L (20.0-29.0); Chloride 102 mmol/L (96-106); Cholesterol 150 mg/dL (<=200); Globulin 3.5 g/dL (2.2-4.2); Glucose 90 mg/dL (70-99); Low Density Lipoprotein Calc. 85 mg/dL; PSA,Total - Annual Screen 1.73 ng/mL (0.02-4.00); Potassium 4.5 mmol/L (3.5-5.1); Triglycerides 163 mg/dL; Very Low Density Lipoprotein 33 mg/dL (5-40); cholesterol:hdl ratio screen 4.11
== END 2025-06-04 23:59 | disposition home or self-care (01) ==
LOC: MFPLAB 10:02
PROVIDERS: PCP Family Medicine; Visit Provider Family Medicine
DX: Z00.00 Encounter for general adult medical examination without abnormal findings (principal); D59.10 Autoimmune hemolytic anemia, unspecified; E78.5 Hyperlipidemia, unspecified; Z12.5 Encounter for screening for malignant neoplasm of prostate
CPT/HCPCS: 36415; 80053; 80061; 84153; 85025; G0103